=== PATIENT | male | born 1950 | race Caucasian/White ===

== ENCOUNTER 2018-05-06 01:44 | Inpatient (IN) | payer OTHER, BC ==
[~2018-05-06] VITALS: Ht 180.3 cm; Wt 128.0 kg
[2018-05-06] VITALS (9 sets, daily range): BP systolic 91–144; BP diastolic 52–112
--- NOTE | ~2018-05-06 | EKG ---
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 : 1950 Requested By: Mauricio Jones Order Number: [id number] MD: Mauricio Jnoes Measurements Intervals [place] Rate: 107 P: KS: QRS: 2 QRSD: 158 T: 121 QT: 380 QTc: 507 Interpretive Statements Atrial fibrillation with increased ventricular rate Left bundle branch block Compared to ECG 05/06/2018 09:43:16 No significant changes Electronically Signed On 05-11-2018 22:42:02 [employer] by Mauricio Jones [email or web address] <ELECTRONICALLY SIGNED> By: Mauricio Jones MD 05/11/18 224 143 30 Mauricio Jones MD /BRANDAN
--- NOTE | ~2018-05-06 | 2DMMODE ---
[facility] [address] [place] [address] 2 D/M-MODE ECHOCARDIOGRAM Name: DELANEY LOPEZ Room #: 218-P ADM IN .R.#: [id number] Admission: 05/06/18 Attend Phys: Anuj Franks MD Discharge: Date of : 54 Date of Service: 05/06/18 1030 Report #: [id number] THIS REPORT FOR: //name// APPROVED REPORT Study performed: 05/06/2018 08:40:14 EXAM: Comprehensive 2D, Doppler, and color-flow Echocardiogram Patient Location: Echo lab Room #: 218 Status: routine BSA: 2.51 HR: 80 bpm BP: 97/59 mmHg Rhythm: Atrial Fibrillation Other Information Study Quality: Good Risk Factors: Cardiac Risk Factors: HTN, Hyperlipidemia, DM, SOB Indications Diabetes Atrial Fibrillation Dyspnea Hypertension/HDD 2D Dimensions RVDd: 36.64 mm IVSd: 16.36 (7-11mm) LVOT Diam: 23.09 (18-24mm) LVDd: 49.08 mm PWd: 13.92 (7-11mm) Ascending Ao: 36.91 (22-36mm) LVDs: 42.71 (25-40mm) Aortic Root: 29.03 mm IVC: 27.00 mm Volumes Left Atrial Volume (Systole) Single Plane 4CH: 85.16 mL Single Plane 2CH: 70.45 mL LA ESV Index: 33.00 mL/m2 Aortic Valve AoV Peak David.: 1.41 m/s AO Peak Gr.: 7.[address] [facility] [address] [place] [address] 2 D/M-MODE ECHOCARDIOGRAM Name: DELANEY LOPEZ Room #: 218-P ADM IN Walt.#: [id number] Admission: 05/06/18 Attend Phys: Anuj Franks MD Discharge: Date of : 54 Date of Service: 05/06/18 1030 Report #: [id number] Pulmonary Valve PV Peak David.: 0.92 m/s PV Peak Gr.: 3.47 mmHg Tricuspid Valve TR Peak David.: 3.00 m/s TR Peak Gr.: 36.05 mmHg PA Pressure: 46.00 mmHg TV Max P.00 mmHg Left Ventricle The left ventricle is normal size. Paradoxical septal motion consistent with conduction abnormality. Moderate concentric left ventricular hypertrophy. Left ventricular systolic function is mildly decreased. LVEF is 45%. This study is not technically sufficient to allow evaluation of the LV diastolic function due to atrial fibrillation. Right Ventricle The right ventricle is normal size. The right ventricular systolic function is normal. Atria Left atrium is at the upper limits of normal. The right atrium size is normal. Aortic Valve The aortic valve is normal in structure. Mild aortic regurgitation. There is no aortic valvular stenosis. Mitral Valve The mitral valve is normal in structure. Mild mitral regurgitation. No evidence of mitral valve stenosis. Tricuspid Valve The tricuspid valve is normal in structure. Trace to mild tricuspid regurgitation. Estimated PAP 46 mmHg. Moderate pulmonary hypertension. Pulmonic Valve The pulmonary valve is normal in structure. There is no pulmonic valvular regurgitation. Great Vessels The aortic root is normal in size. IVC is dilated and collapses >50% with inspiration. [facility] [place] [place] [address] 2 D/M-MODE ECHOCARDIOGRAM Name: DELANEY LOPEZ J Room #: 218-P [facility] IN ..#: [id number] Admission: 05/06/18 Attend Phys: Anuj Franks MD Discharge: Date of : 54 Date of Service: 05/06/18 1030 Report #: [id number] Pericardium There is no pericardial effusion. <Conclusion> The left ventricle is normal size. Paradoxical septal motion consistent with conduction abnormality. LVEF is 45%. This study is not technically sufficient to allow evaluation of the LV diastolic function due to atrial fibrillation. The right ventricle is normal size. Left atrium is at the upper limits of normal. Mild aortic regurgitation. Mild mitral regurgitation. Trace to mild tricuspid regurgitation. Estimated PAP 46 mmHg. Moderate pulmonary hypertension. The aortic root is normal in size. There is no pericardial effusion. <ELECTRONICALLY SIGNED> By: Escobar Auguste MD, [facility] 05/06/18 1030 29 29 Escobar Auguste MD, FAC /INF
--- NOTE | ~2018-05-06 | EKG ---
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[place] : 1950 Requested By: Lynn Sinclair Order Number: [id number] MD: Ramsey Nelson Measurements Intervals [place] Rate: 75 P: [place]: QRS: 15 QRSD: 156 T: 134 QT: 391 QTc: 437 Interpretive Statements Atrial fibrillation Left bundle branch block Baseline wander in lead(s) V6 No previous ECG available for comparison Electronically Signed On 05-07-2018 8:37:02 WAREHOUSE CHECKER by Ramsey Nelson [email or web address] <ELECTRONICALLY SIGNED> By: Ramsey Nelson MD, [facility] 05/07/18 0837 0943 0943 Ramsey Nelson MD, FACC /EPI
[2018-05-06 04:33] LABS: HEMATOCRIT 42.8 % (42.0-52.0); HEMOGLOBIN 14.2 gm/dL (14.0-18.0); MCH 31.5 pg (26.0-34.0); MCHC 33.1 g/dL (28.0-37.0); MCV 95.1 fL (80.0-100.0); RBC 4.5 mil/uL (4.50-6.00); RDW 14.4 % (10.5-14.5); WBC 14.9 thou/uL (4.0-11.0)
[2018-05-06] MEDS ORDERED: COREG25 M1 (04:40)
[2018-05-06] MEDS ORDERED: SPIRONOLACTONE25 M1 PO (04:41)
[2018-05-06] MEDS ORDERED: LISINOPRIL20 MG PO (04:42)
[2018-05-06] MEDS ORDERED: LIPITOR 20 MG T20 M1 PO (04:44)
[2018-05-06] MEDS ORDERED: NOVOLOG FL100 UNIT/M SUBQ (04:48)
[2018-05-06 04:49] LABS: URINE BILIRUBIN NEGATIVE (Negative); URINE BLOOD NEGATIVE (Negative); URINE CLARITY CLEAR; URINE COLOR YELLOW; URINE GLUCOSE-RANDOM* NEGATIVE (Negative); URINE KETONES NEGATIVE (Negative); URINE LEUKOCYTES-REFLEX NEGATIVE (Negative); URINE NITRITE-REFLEX NEGATIVE (Negative); URINE PROTEIN (DIPSTICK) NEGATIVE (Negative); URINE SPECIFIC GRAVITY >= 1.030 (1.005-1.035); URINE UROBILINOGEN 0.2 E.U./dl (0.2-1.0)
[2018-05-06] MEDS ORDERED: LANTUS100 UNIT/M SUBQ (04:49)
[2018-05-06] MEDS ORDERED: METFORMIN HCL500 MG PO (04:51)
[2018-05-06 04:52] LABS: D-DIMER 0.84 ug/mLFEU (0.19-0.50); PROTIME 10.8 Seconds (9.3-11.4)
[2018-05-06] MEDS ORDERED: TRAZODONE HCL50 MG PO (04:52)
[2018-05-06] MEDS ORDERED: NEURONTIN 300300 M1 PO (04:52)
[2018-05-06 04:53] LABS: ANION GAP 9 mmol/L (7-16); BUN 38 mg/dL (7-18); CALCIUM 9.7 mg/dL (8.5-10.1); CHLORIDE 106 mmol/L (98-107); CO2 19 mmol/L (21-32); CREATININE 1.3 mg/dL (0.7-1.3); GLUCOSE 193 mg/dL (74-106); POTASSIUM 4.7 mmol/L (3.5-5.1); SODIUM 134 mmol/L (136-145)
[2018-05-06] MEDS ORDERED: NORVASC5 MG PO (04:53)
[2018-05-06] MEDS ORDERED: PIOGLITAZONE15 MG (04:54)
[2018-05-06] MEDS ORDERED: ASPIR 8181 MG PO (04:54)
[2018-05-06] MEDS ORDERED: IBUPROFEN 400400 M2 PO (04:56)
[2018-05-06] MEDS ORDERED: UNICOMPLEX M TA1 TA1 PO (04:57)
[2018-05-06] MEDS ORDERED: CLARITIN10 MG PO (04:58)
[2018-05-06 04:59] LABS: ALBUMIN 3.3 g/dL (3.4-5.0); MAGNESIUM 1.8 mg/dL (1.8-2.4); SGOT 17 U/L (15-37); SGPT 66 U/L (30-65); TOTAL BILIRUBIN 0.6 mg/dL (<0.1-1.0); TOTAL PROTEIN 7.2 g/dL (6.4-8.2)
[2018-05-06 05:00] LABS: SERUM ASSESSMENT Clear
[2018-05-06 05:11] LABS: CHOLESTEROL 134 mg/dL (<200); HDL CHOLESTEROL 49 mg/dL (>40); LDL CHOLESTEROL 67 mg/dL (<100); TC:HDL 2.7 Ratio (Not establshd); TRIGLYCERIDE 94 mg/dL (<150); VLDL 19 mg/dL (<40)
[2018-05-07 04:44] VITALS: BP 136/88
[2018-05-07 07:55] VITALS: BP 120/85
[2018-05-07 11:30] VITALS: BP 112/67
[2018-05-07 11:35] VITALS: BP 131/47
[2018-05-07 15:25] VITALS: BP 103/71
[2018-05-07 19:46] VITALS: BP 109/72
[2018-05-08 00:06] VITALS: BP 127/91
[2018-05-08 03:21] LABS: CALCIUM 9.7 mg/dL (8.5-10.1); CREATININE 1.1 mg/dL (0.7-1.3); POTASSIUM 4.6 mmol/L (3.5-5.1)
[2018-05-08 04:20] VITALS: BP 118/76
[2018-05-08 07:15] VITALS: BP 114/87
[2018-05-08 11:31] VITALS: BP 129/92
[2018-05-08 15:16] VITALS: BP 154/92
[2018-05-08 19:44] VITALS: BP 112/79
[2018-05-09 05:06] LABS: ALBUMIN 3.1 g/dL (3.4-5.0); CALCIUM 9.8 mg/dL (8.5-10.1); CREATININE 1.2 mg/dL (0.7-1.3); PHOSPHORUS 3.6 mg/dL (2.5-4.9); POTASSIUM 4.7 mmol/L (3.5-5.1)
[2018-05-09 05:21] VITALS: BP 133/88
[2018-05-09 07:45] LABS: BE(vivo) -0.8 mmol/L (-2 to +3); HCO3 22.7 mmol/L (22.0-26.0); PCO2 34.3 mmHg (35.0-45.0); PO2 74.6 mmHg (80.0-100.0); pH 7.438 (7.360-7.450); sO2 95.5 % (92.0-98.0)
[2018-05-09 08:15] VITALS: BP 129/82
[2018-05-09] MEDS ORDERED: CARDIZEM CD 30300 M1 PO (09:09)
[2018-05-09] MEDS ORDERED: METOPROLOL SUCC50 MG PO (09:09)
[2018-05-09] MEDS ORDERED: ELIQUIS5 MG PO (09:09)
[2018-05-09 12:40] VITALS: BP 108/85
[2018-05-09 20:10] VITALS: BP 116/86
[2018-05-10 03:35] VITALS: BP 101/72
[2018-05-10 08:54] VITALS: BP 114/73
[2018-05-10] MEDS ORDERED: DIGOXIN250 MCG PO (14:34)
[2018-05-10 15:30] VITALS: BP 114/73
== END 2018-05-10 18:17 | disposition home or self-care (01) | DRG 682 ==
LOC: 2N 01:44
PROVIDERS: Hospitalist; Nurse Practitioner Acute Care; Nurse Practitioner Gerontology
DX: N17.9 Acute kidney failure, unspecified (principal); I50.23 Acute on chronic systolic (congestive) heart failure; I13.0 Hypertensive heart and chronic kidney disease with heart failure and stage 1 through stage 4 chronic kidney disease, or unspecified chronic kidney disease; I42.9 Cardiomyopathy, unspecified; I48.0 Paroxysmal atrial fibrillation; E78.5 Hyperlipidemia, unspecified; G25.81 Restless legs syndrome; G47.33 Obstructive sleep apnea (adult) (pediatric); N18.3 Chronic kidney disease, stage 3 (moderate); E11.22 Type 2 diabetes mellitus with diabetic chronic kidney disease; I27.20 Pulmonary hypertension, unspecified; E87.70 Fluid overload, unspecified; Z96.659 Presence of unspecified artificial knee joint; Z79.01 Long term (current) use of anticoagulants; Z88.8 Allergy status to other drugs, medicaments and biological substances; Z82.49 Family history of ischemic heart disease and other diseases of the circulatory system; Z79.82 Long term (current) use of aspirin; Z79.899 Other long term (current) drug therapy
CPT/HCPCS: 10081; 10797

== ENCOUNTER → 2018-05-24 | Outpatient (CLI) | payer OTHER, BC ==
[~2018-05-24] MED LIST: ASPIR 8181 MG PO; CARDIZEM CD 30300 M1 PO; CLARITIN10 MG PO; COREG25 M1; DIGOXIN250 MCG PO; ELIQUIS5 MG PO; IBUPROFEN 400400 M2 PO; LANTUS100 UNIT/M SUBQ; LIPITOR 20 MG T20 M1 PO; LISINOPRIL20 MG PO; METFORMIN HCL500 MG PO; METOPROLOL SUCC50 MG PO; NEURONTIN 300300 M1 PO; NORVASC5 MG PO; NOVOLOG FL100 UNIT/M SUBQ; PIOGLITAZONE15 MG; SPIRONOLACTONE25 M1 PO; TRAZODONE HCL50 MG PO; UNICOMPLEX M TA1 TA1 PO
--- NOTE | ~2018-05-24 | SLE ---
[facility] [place] [address] POLYSOMNOGRAPHY STUDY Name: DELANEY LOPEZ Room #: REG [facility]#: [id number] Admission: 05/24/18 Attend Phys: Refugio Yarbrough MD Discharge: Date of : 54 Report #: [id number] THIS REPORT FOR: //name// CC: Refugio Auguste MD [facility] SLEEP STUDY ATTENDING PHYSICIAN: Dr. Escobar Auguste. The patient is 67 years old who weighs 287 pounds with a BMI of 40. The patient's [place] score was 6. The patient has known sleep apnea and has been on CPAP at 13 cm water. A reevaluation study was requested. The patient may need a new CPAP machine. During the night study, the patient spent 429 minutes in bed and slept for 380 minutes with a sleep efficiency of 88%. Sleep latency was 10.4 minutes with a REM latency of 98.9 minutes. Overall, sleep architecture showed increased stage 1 and stage 2 sleep, absent slow wave and normal REM sleep. During the initial diagnostic portion of the study, the patient slept for 149 minutes. During that time, the patient had 79 obstructive apneas, 1 mixed apnea, no hypopneas and no central apneas. The patient's apnea-hypopnea index during the diagnostic portion was 32 per hour with a REM index of 36 per hour and a supine index of 32 per hour. EKG monitoring revealed normal sinus rhythm. There were frequent PVCs seen. There was also an 6-beat run of narrow complex tachycardia observed. Maximum heart rate was 72 beats per minute. PLMS were seen at an index of 46 per hour and 6 per hour caused EEG arousals. However, during the therapeutic portion of the study, the patient's PLM index significantly reduced to 3.6 per hour with an arousal index of 0.3 per hour. Nocturnal oximetry study during the diagnostic portion revealed an average oxygen saturation of 91% with lowest of 85%. 33.9 minutes were spent in oxygen saturation of less than 89%. The patient met the criteria for CPAP initiation. It was started at 11 cm water and titrated up to 13 cm water. At the final pressure, the patient slept for 171 minutes. The patient had almost an hour of REM sleep and supine sleep was seen throughout. The patient's AHI was 0 per hour and oxygen saturation remained above 90%. IMPRESSION: [facility] [address] [place] [address] POLYSOMNOGRAPHY STUDY Name: DELANE[facility] LOPEZ [id number] Admission: 05/24/18 Attend Phys: Refugio Yarbrough MD Discharge: Date of : 54 Report #: [id number] 1. Severe sleep apnea-hypopnea syndrome at an apnea-hypopnea index of 32 per hour. 2. Nocturnal hypoxia secondary to obstructive sleep apnea, but resolved with CPAP. 3. Abnormal EKG with frequent premature ventricular contractions and an 6-beat run of narrow complex tachycardia. 4. Severe periodic limb movements in sleep during the initial diagnostic portion of the study, which significantly improved during the therapeutic portion to an index down to 3.6 per hour and does not need to be treated. RECOMMENDATIONS: 1. CPAP at 13 cm water completely eliminated the patient's sleep apnea and should be used on a nightly basis. 2. Follow up in 4-6 weeks to assess compliance with CPAP and to document clinical improvement. 3. Weight loss is strongly advised. 4. 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 5. Cautioned regarding driving until symptoms of sleep apnea resolve with the use of CPAP. 6. PLMS does not need to be treated unless the patient has symptoms of restless legs during the day. 7. Follow up with Cardiology regarding abnormal EKG, if clinically indicated. <ELECTRONICALLY SIGNED> By: Refugio Yarbrough MD 05/26/182100 1854 19 Refugio Yarbrough MD /nt
== END ==
LOC: SLEEPLAB 10:52
DX: G47.33 Obstructive sleep apnea (adult) (pediatric) (principal); G47.61 Periodic limb movement disorder; R09.02 Hypoxemia; R94.31 Abnormal electrocardiogram [ECG] [EKG]

== ENCOUNTER → 2020-02-03 | Outpatient (CLI) | payer OTHER | LOC: CAT 12:36 | PROVIDERS: ATTEND Internal Medicine Cardiovascular Disease | DX: Z13.6 Encounter for screening for cardiovascular disorders (principal); I25.10 Atherosclerotic heart disease of native coronary artery without angina pectoris; E78.00 Pure hypercholesterolemia, unspecified ==

== ENCOUNTER → 2020-03-31 | Outpatient (CLI) | payer OTHER, BC | LOC: SJCVCIMAG 03-03 07:40 | PROVIDERS: ATTEND Internal Medicine Cardiovascular Disease | DX: I65.23 Occlusion and stenosis of bilateral carotid arteries (principal); I08.3 Combined rheumatic disorders of mitral, aortic and tricuspid valves; I44.7 Left bundle-branch block, unspecified; I10 Essential (primary) hypertension; E11.9 Type 2 diabetes mellitus without complications; I42.8 Other cardiomyopathies; Z79.899 Other long term (current) drug therapy; Z87.891 Personal history of nicotine dependence ==

== ENCOUNTER → 2020-07-07 | Outpatient (CLI) | payer OTHER, BC | LOC: SJCVC 10:43 | PROVIDERS: ATTEND Nurse Practitioner Adult Health | DX: R94.31 Abnormal electrocardiogram [ECG] [EKG] (principal); I44.7 Left bundle-branch block, unspecified; I42.9 Cardiomyopathy, unspecified; I10 Essential (primary) hypertension; R93.1 Abnormal findings on diagnostic imaging of heart and coronary circulation; E78.00 Pure hypercholesterolemia, unspecified; I48.0 Paroxysmal atrial fibrillation; I65.23 Occlusion and stenosis of bilateral carotid arteries; D68.59 Other primary thrombophilia; E78.5 Hyperlipidemia, unspecified; E11.9 Type 2 diabetes mellitus without complications; G47.33 Obstructive sleep apnea (adult) (pediatric); Z79.84 Long term (current) use of oral hypoglycemic drugs; Z79.899 Other long term (current) drug therapy; Z88.8 Allergy status to other drugs, medicaments and biological substances; Z87.891 Personal history of nicotine dependence ==

== ENCOUNTER → 2021-02-02 | Outpatient (CLI) | payer OTHER, BC | LOC: SJCVC 11:50 | PROVIDERS: ATTEND Internal Medicine Cardiovascular Disease | DX: R94.31 Abnormal electrocardiogram [ECG] [EKG] (principal); R00.1 Bradycardia, unspecified; I44.7 Left bundle-branch block, unspecified; I10 Essential (primary) hypertension; E78.00 Pure hypercholesterolemia, unspecified; I48.0 Paroxysmal atrial fibrillation; R93.1 Abnormal findings on diagnostic imaging of heart and coronary circulation; E11.9 Type 2 diabetes mellitus without complications; G47.33 Obstructive sleep apnea (adult) (pediatric); Z79.899 Other long term (current) drug therapy; Z79.84 Long term (current) use of oral hypoglycemic drugs; Z87.891 Personal history of nicotine dependence; Z72.89 Other problems related to lifestyle ==

== ENCOUNTER → 2021-08-09 | Outpatient (CLI) | payer OTHER, BC | LOC: SJCVCIMAG 08-03 06:56 | PROVIDERS: ATTEND Internal Medicine Cardiovascular Disease | DX: I35.1 Nonrheumatic aortic (valve) insufficiency (principal); I10 Essential (primary) hypertension; E78.00 Pure hypercholesterolemia, unspecified; I48.0 Paroxysmal atrial fibrillation; I44.7 Left bundle-branch block, unspecified; R93.1 Abnormal findings on diagnostic imaging of heart and coronary circulation ==